=== PATIENT | female | born 1955 | race Caucasian/White ===

== ENCOUNTER 2018-06-22 13:40 | Outpatient (CLI) | payer BC ==
[~2018-06-22 13:40] MED LIST: Iopamidol 370 76% 100 ML VIAL ONE
--- NOTE | 2018-06-22 14:47 | CT ---
FCT Abdomen Pelvis W Con: 06/22/2018 12:00 AM CLINICAL INFORMATION: Colon cancer, status post radiation and chemotherapy. Cervical cancer. COMPARISON: 08/19/2012, 02/06/2011 Procedure: Multiple contiguous axial images were obtained and a CT of the abdomen and pelvis with IV contrast.Or al contrast was administered. Coronal reformats were performed. FINDINGS: Lower Chest: within normal limits. Abdomen: Liver: within normal limits. Bile Ducts: Normal caliber. Gallbladder: No calcified gallstones. Normal caliber wall. Pancreas: within normal limits. Spleen: within normal limits. Calcified aneurysm of the splenic hilum, unchanged Adrenals: within normal limits. Kidneys: Symmetric enhancement. Subcentimeter hypodensity in the right renal cortex is too small to c haracterize. Bilaterally no obstructive uropathy Peritoneum: No ascites or free air, no fluid collection. Bowel: Gastric mucosa, duodenum and multiple normal caliber small bowel loops are identified. Ileocec al junction is normal. Appendix appears to be surgically absent. Left lower quadrant colostomy. No ev idence of colon obstruction. Mesentery and Retroperitoneum: No enlarged mesenteric or retroperitoneal lymph nodes. Vessels: Incidental IVC filter. Normal caliber aorta. Abdominal Wall: within normal limits. Pelvis: Reproductive Organs: Surgically absent uterus. Ureters: within normal limits. Bladder: within normal limits. Bones: There is stranding of the presacral fat, similar to previous examination and likely represents postsurgical change. No lytic or blastic lesions. IMPRESSION: 1. No CT evidence of metastases in the solid organs. 2. Left lower quadrant colostomy. No associated bowel obstruction 3. Stable posttreatment changes with stranding of the presacral fat.
== END 2018-06-22 13:41 | disposition home or self-care (01) ==
LOC: BICCT 13:40
PROVIDERS: ATTEND Internal Medicine Hematology & Oncology
DX: C18.2 Malignant neoplasm of ascending colon (principal); I80.209 Phlebitis and thrombophlebitis of unspecified deep vessels of unspecified lower extremity; Z93.3 Colostomy status
CPT/HCPCS: 74177; Q9967

== ENCOUNTER 2018-08-04 12:44 | Outpatient (CLI) | payer BC ==
--- NOTE | 2018-08-05 08:31 | PET ---
Exam: PET CT skull to mid thigh COMPARISON: 02/05/2017 HISTORY: Colon cancer TECHNIQUE: A PET/CT was performed from the skull to the mid thigh after administration of 12.8 millic uries of F-18 FDG. Evaluation was performed on a [employer] workstation. FINDINGS: NECK: No areas of hypermetabolic activity CHEST: No areas of hypermetabolic activity ABDOMEN/PELVIS: The patient has undergone an interval end colostomy and Justa's pouch. There is so ft tissue density in the presacral space. It is difficult to discriminate the small bowel loops and Justa's pouch from soft tissue density separate from the bowel. There is hypermetabolic activity w ithin this soft tissue density with a maximum SUV of 5.3. No other areas of hypermetabolic activity are seen within the abdomen or pelvis. No enlarged or hypermetabolic abdominal or pelvic lymph nodes are seen. SKELETON: No areas of hypermetabolic activity CT images used for attenuation correction show an inferior vena cava filter.. IMPRESSION: There is hypermetabolic activity surrounding the Justa's pouch in the pelvis and sayda cral space. This could represent residual disease or hypermetabolic activity from recent surgery. Correlate with surgical history.
== END 2018-08-04 12:45 | disposition home or self-care (01) ==
LOC: PET 12:44
PROVIDERS: ATTEND Internal Medicine Hematology & Oncology
DX: C18.9 Malignant neoplasm of colon, unspecified (principal)
CPT/HCPCS: 78815; A9552

== ENCOUNTER 2018-10-12 08:36 | Outpatient (CLI) | payer BC ==
--- NOTE | 2018-10-12 10:56 | CT ---
CT THORAX WITH CONTRAST CT ABDOMEN WITH CONTRAST CT PELVIS WITH CONTRAST: DATE: 10/12/2018 HISTORY: 63-year-old female with colon cancer, status post surgery, radiation therapy, and chemotherapy, now w ith rising CEA levels. COMPARISON: CT abdomen and pelvis of 06/22/2018. TECHNIQUE: IV iodinated contrast media: Administered Oral contrast media: Administered Single phase scans of thorax, abdomen, and pelvis. FINDINGS: Lungs are clear. No pleural effusion or pneumothorax. Fusiform ectasia of ascending thoracic aorta wi th diameter of 3.8 cm. No mediastinal or hilar lymphadenopathy. Trachea and major bronchi are patent and clear. No destructive osseous lesion identified. Left lower quadrant colostomy again noted. No significant i nterval change in the diffuse, infiltrative soft tissue attenuation and fat stranding involving the presacral space and adjacent portions of the pelvic cavity, consistent with postsurgical and postradi ation changes. (It would be difficult to completely rule out the possibility of infiltrative residual or recurrent neoplasm, but lack of significant interval change somewhat militates against th at.) Pelvic relaxation. Normal, thin brownlee of the urinary bladder. Suture line along wall of cecum which is located within the pelvic cavity. No small bowel dilation. IVC filter. No abdominal aortic a neurysm. No hydronephrosis. Several tiny hypodense bilateral renal cortical lesions, too small to characterize, but most likely to represent tiny renal cysts. No evidence of hepatic metastasis. Pancr eas, liver, adrenals, and spleen, are normal. No ascites. No significant interval change in the contents of the abdominal cavity and pelvic cavity. IMPRESSION: 1. No significant interval change in the contents of the abdominal cavity and pelvic cavity. 2. No evidence of metastatic disease within the thoracic cavity. 3. Postradiation and postsurgical changes in the pelvic cavity. 4. Left lower quadrant colostomy.
[2018-10-12] MEDS ORDERED: ISOVUE-370 76%-LOCM 1 ML ONE (13:58)
== END 2018-10-12 08:37 | disposition home or self-care (01) ==
LOC: BICCT 08:36
PROVIDERS: ATTEND Internal Medicine Hematology & Oncology
DX: C18.2 Malignant neoplasm of ascending colon (principal); Z98.890 Other specified postprocedural states; Z93.3 Colostomy status
CPT/HCPCS: 71260; 74177; Q9966

== ENCOUNTER 2018-12-17 10:10 | Outpatient (CLI) | payer BC ==
--- NOTE | 2018-12-17 15:34 | PET ---
EXAM: PET CT skull to mid thigh COMPARISON: 08/04/2018; CT chest abdomen pelvis 10/12/2018 HISTORY: Malignant neoplasm of the ascending colon. TECHNIQUE: A PET/CT was performed from the skull to the mid thigh after administration of 11.9 millic uries of F-18 FDG. Evaluation was performed on a [employer] workstation. FINDINGS: NECK: No suspicious areas of hypermetabolic activity. Activity near the vocal cords likely represents phonation during the exam. CHEST: No areas of hypermetabolic activity ABDOMEN/PELVIS: There is stable soft tissue density in the pelvis/anterior to the sacrum which demons trates hypermetabolic activity with max SUV value of 5.5. No other areas of hypermetabolic activity are seen within the abdomen. SKELETON: No areas of hypermetabolic activity CT images used for attenuation correction show a left lower quadrant ostomy. An inferior vena cava fi lter is seen.. IMPRESSION: Stable hypermetabolic activity in the pelvis likely represents postradiation and postsurg ical change.
== END 2018-12-17 10:11 | disposition home or self-care (01) ==
LOC: PET 10:10
PROVIDERS: ATTEND Internal Medicine Hematology & Oncology
DX: C18.2 Malignant neoplasm of ascending colon (principal); R97.0 Elevated carcinoembryonic antigen [CEA]; Z98.890 Other specified postprocedural states; Z92.3 Personal history of irradiation
CPT/HCPCS: 78815; A9552

== ENCOUNTER 2019-04-06 11:08 | Outpatient (CLI) | payer BC ==
--- NOTE | 2019-04-06 12:55 | PET ---
EXAM: PET CT skull to mid thigh COMPARISON: 12/17/2018 HISTORY: Malignant neoplasm of the ascending colon TECHNIQUE: A PET/CT was performed from the skull to the mid thigh after administration of 10.5 millic uries of F-18 FDG. Evaluation was performed on a [employer] workstation. FINDINGS: NECK: No areas of hypermetabolic activity CHEST: No areas of hypermetabolic activity ABDOMEN/PELVIS: There are stable postsurgical changes in the presacral space. There is stable hyperme tabolic activity in this region with a max SUV value of 6.2. SKELETON: No areas of hypermetabolic activity CT images used for attenuation correction show an ostomy in the left lower quadrant of the abdomen.. An IVC filter is seen. IMPRESSION: Stable nonspecific hypermetabolic presacral activity. This could represent postradiation/ postsurgical change. Residual malignancy cannot be entirely excluded.
== END 2019-04-06 11:09 | disposition home or self-care (01) ==
LOC: PET 11:08
PROVIDERS: ATTEND Internal Medicine Hematology & Oncology
DX: C18.2 Malignant neoplasm of ascending colon (principal)
CPT/HCPCS: 78815; 80053; 82378; A9552

== ENCOUNTER 2021-04-13 10:16 | Day surgery (SDC) | payer MEDICARE ==
[2021-04-13] MEDS ORDERED: Acetaminophen 500 MG TAB PO PRN (10:49)
[2021-04-13] MEDS ORDERED: diphenhydrAMINE 25 MG CAP PO PRN (10:50)
[2021-04-13] MEDS ORDERED: diphenhydrAMINE 25 MG CAP ONE (11:47)
[2021-04-13] MEDS ORDERED: Sodium Chloride 0.9% 10 ML ONE (11:47)
[2021-04-13] MEDS ORDERED: Acetaminophen 500 MG TAB ONE (11:47)
[2021-04-13 16:47] VITALS: BP 106/57; TEMP 98.1
== END 2021-04-13 16:48 | disposition home or self-care (01) ==
LOC: ONC/OP 10:16
PROVIDERS: ATTEND Internal Medicine Hematology & Oncology
PROC: 30233N1 Transfusion of Nonautologous Red Blood Cells into Peripheral Vein, Percutaneous Approach (ICD-10-PCS; principal; 2021-04-13)
DX: D64.9 Anemia, unspecified (principal); D69.6 Thrombocytopenia, unspecified
CPT/HCPCS: 36415; 36430; 80053; 82728; 86850; 86900; 86901; J1642; P9016